=== PATIENT | female | born 1935 | race Caucasian/White ===

== ENCOUNTER → 2018-12-24 | Outpatient (CLI) | payer MEDICARE ==
[~2018-12-24] MED LIST: ASPIR 8181 MG PO; IOPAMIDOL 370 MG/ML 200 ML INFUS..BTL INJ ONE; LISINOPRIL-HCT1 EACH PO; METFORMIN HCL500 MG PO; SIMVASTATIN20 MG PO; SODIUM CHLORIDE 0.9% 100 ML 100 ML ONE; SODIUM CHLORIDE 0.9% 250ML 250 ML ONE; SODIUM CHLORIDE 0.9% 500ML 500 ML ONE; SPIRONOLACTONE25 MG PO
[2018-12-24 13:30] LABS: CREATININE, SERUM 1.08 mg/dL (0.57-1.11)
--- NOTE | 2018-12-25 16:29 | Diagnostic Imaging Report ---
CTA NECK HISTORY: Carotid stenosis COMPARISON: None. TECHNIQUE: CTA of the neck was performed with intravenous iodine based contrast. Coronal, sagittal, 3-D, and oblique maximum intensity projection reformations were created. One or more of the following dose reduction techniques were used: Automated exposure control, adjustment of the mA and/or kV according to patient size, and/or utilization of iterative reconstruction technique. DISCUSSION: If present, any cervical carotid stenosis will be measured as a percentage relative to the [place] artery distal to the stenosis (NASCET). There are mild calcifications in the aortic arch and proximal great vessels. Right Carotid: There is occlusion of the proximal right common carotid artery with reconstitution of the right internal and external carotid arteries, just distal to the bifurcation. Small collateral vessels from the right vertebral artery V2 segment communicate with the right external carotid artery. Underlying moderate right carotid bulb calcified plaque is present. The mid and upper right cervical internal carotid artery is small, but grossly patent. Left Carotid: Moderate left carotid bulb calcified plaque causes less than 50% focal stenosis in the proximal left internal carotid artery. The left internal carotid artery has a retropharyngeal course. Right vertebral artery: Patent, no abnormalities. Left vertebral artery: Patent, no abnormalities. The left vertebral artery arises directly from the aortic arch, which is a normal variant. The intracranial arterial vasculature is partially visualized. Bilateral carotid siphon calcifications are present. The right intracranial internal carotid artery is slightly smaller than the left. Additional findings: Both ocular lenses are thinned. Small nodular cutaneous lesion in the posterior paramedian neck may be an inclusion cyst. There are prominent degenerative changes throughout the spine. IMPRESSION: 1. 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 Associated small collateral vessels from the right vertebral artery V2 segment communicate with the right external carotid artery. 2. Underlying moderate right carotid bulb calcified plaque is present. The mid and upper right cervical internal carotid artery is small, but grossly patent. 3. Moderate left carotid bulb calcified plaque without significant stenosis. Signed by: Dr. Maicol Ayon M.D. on 12/25/2018 4:25 PM
== END ==
LOC: CT 12:21
PROVIDERS: ATTEND Internal Medicine Cardiovascular Disease
DX: I65.21 Occlusion and stenosis of right carotid artery (principal); I10 Essential (primary) hypertension
CPT/HCPCS: 36415; 70498; 82565; 84520; 96360; J7040; J7050; Q9967